=== PATIENT | male | born 1965 | race Caucasian/White ===

== ENCOUNTER 2021-07-24 18:27 | Emergency (ER) | payer BC ==
[~2021-07-24] VITALS: Ht 177.8 cm; Wt 95.3 kg
[2021-07-24 18:43] VITALS: BP 141/75
--- NOTE | 2021-07-24 18:43 | NUR ---
TO BED AMBULATORY
--- NOTE | 2021-07-24 18:55 | NUR ---
DR LOPEZ AT BEDSIDE EVALUATING PT
[2021-07-24] MEDS ORDERED: HYDROcodone/APAP 5/325 MG 1 TAB TAB PO ONE (19:00)
[2021-07-24] MEDS ORDERED: LIDOCAINE 2% 1000 MG/50 ML VIAL INJ ONE (19:00)
--- NOTE | 2021-07-24 19:15 | NUR ---
RECIEVED REPORT FROM HA BANUELOS. TRANSFER OF CARE AT THIS TIME.
--- NOTE | 2021-07-24 19:20 | NUR ---
PT. IS A 56 Y/O MALE THAT CAME INTO ED WITH C/O OF LACERATION LEFT MIDDLE FINGER, S/P SAWING WOOD , 1800HOURS, UNSURE OF TETANUS VACCINE. DENIES N/V/D; SKIN IS PINK/WARM/DRY; AAOX4 WITH EVEN AND STEADY GAIT; HR EVEN AND REGULAR; PT DENIES ANY FEVER, CP, SOB, OR COUGH AT THIS TIME; VSS; PATIENT POSITIONED FOR COMFORT; HOB ELEVATED; BEDRAILS UP X2; BED DOWN. ER MD MADE AWARE OF PT STATUS.
--- NOTE | 2021-07-24 19:20 | NUR ---
XRAY AT BEDSIDE
[2021-07-24] MEDS ORDERED: ACET-8386 PO (20:02)
[2021-07-24] MEDS ORDERED: IBUP-2213 PO (20:02)
[2021-07-24] MEDS ORDERED: CEPH-588 PO (20:02)
[2021-07-24 20:27] VITALS: BP 141/75
--- NOTE | 2021-07-24 20:27 | NUR ---
Patient discharged with v/s stable. Written and verbal after care instructions given and explained. Patient alert, oriented and verbalized understanding of instructions. Ambulatory with steady gait. All questions addressed prior to discharge. ID band removed. Patient advised to follow up with PMD. Rx of KEFLEX, HYDROCODONE/ACETAMINOPHEN, IBUPROFEN given. Patient educated on indication of medication including possible reaction and side effects. Opportunity to ask questions provided and answered.
== END 2021-07-24 20:27 | disposition home or self-care (01) ==
LOC: MED 18:27
DX: S61.213A Laceration without foreign body of left middle finger without damage to nail, initial encounter (principal); W31.89XA Contact with other specified machinery, initial encounter; Y93.89 Activity, other specified; Y92.89 Other specified places as the place of occurrence of the external cause; Y99.8 Other external cause status
CPT/HCPCS: 12001; 73120; 90471; 90715; 99283; J2001; Q0092